=== PATIENT | female | born 1955 | race Caucasian/White ===

== ENCOUNTER 2017-09-05 06:26 | Day surgery (SDC) | payer BC ==
[~2017-09-05 06:26] MED LIST: MOXIFLOXACIN 0.5% 3 ML OPH OPER; PHENYLephrine 2.5% 15 ML OPH OPER; PREDNISOLONE ACET 1% 5 ML OPH OPER; PROPARACAINE 0.5% 15 ML OPH OPER; SOD CHLORIDE 0.9% 1,000 ML IV; TROPICAMIDE 1% 3 ML OPH OPER
[2017-09-05] MEDS ORDERED: EPINEPHrine 1 MG INJ (07:46)
[2017-09-05] MEDS ORDERED: SODIUM HYALURONATE 14 MG/ML SYG (07:50)
[2017-09-05] MEDS ORDERED: TROPICAMIDE 1% 3 ML OPH OPER (08:00)
[2017-09-05] MEDS ORDERED: SOD CHLORIDE 0.9% 1,000 ML IV (08:00)
[2017-09-05] MEDS ORDERED: BUPIVACAINE 0.75% (MPF) 10 ML INJ (08:04)
[2017-09-05] MEDS ORDERED: LIDOCAINE 2% (SDV) 5 ML INJ (08:05)
[2017-09-05] MEDS: PREDNISOLONE ACET 1% 5 ML OPH OPER (08:19)
[2017-09-05] MEDS: MOXIFLOXACIN 0.5% 3 ML OPH OPER (08:20)
[2017-09-05] MEDS: PHENYLephrine 2.5% 15 ML OPH OPER (08:20)
[2017-09-05] MEDS: PROPARACAINE 0.5% 15 ML OPH OPER (08:21)
[2017-09-05] MEDS ORDERED: LABETALOL HCL 20MG INJ IV (09:30)
[2017-09-05] MEDS ORDERED: MEPERIDINE 25 MG INJ IV (09:30)
[2017-09-05] MEDS ORDERED: hydrALAzine 20 MG INJ IV (09:30)
[2017-09-05] MEDS ORDERED: EPHEDrine SULFATE 50 MG/5 ML SYG IV (09:30)
[2017-09-05] MEDS ORDERED: METOCLOPRAMIDE 10 MG INJ IV (09:30)
[2017-09-05] MEDS ORDERED: MIDAZOLAM 1 MG/ML 2 ML INJ IV (09:30)
[2017-09-05] MEDS ORDERED: ONDANSETRON 4 MG INJ IV (09:30)
[2017-09-05] MEDS ORDERED: DIPHENHYDRAMINE 50 MG INJ IV (09:30)
[2017-09-05] MEDS ORDERED: FENTAnyl 50 MCG/ML VIAL IV ×3 (09:30)
[2017-09-05] MEDS ORDERED: OXYCODONE/ACETAMINOPHEN (5/325) TAB PO ×2 (09:30)
[2017-09-05] MEDS ORDERED: PROPOFOL 20 ML (09:45)
[2017-09-05] MEDS: TETRACAINE 0.5% 4 ML OPH LEFT EYE (09:50)
[2017-09-05] MEDS: LIDOCAINE 2% (SDV) 5 ML INJ INJ (09:50)
[2017-09-05] MEDS: BUPIVACAINE 0.75% (MPF) 10 ML INJ INJ (09:50)
[2017-09-05] MEDS ORDERED: LIDOCAINE 1%/EPI 30 ML INJ (09:53)
[2017-09-05] MEDS: TOBRAMYCIN/DEXAMETH 2.5 ML OPH (10:26)
== END 2017-09-05 12:00 | disposition home or self-care (01) ==
LOC: SDS 06:26
DX: H25.12 Age-related nuclear cataract, left eye (principal); E11.9 Type 2 diabetes mellitus without complications; E78.5 Hyperlipidemia, unspecified
CPT/HCPCS: 66984; 71045; 82962